=== PATIENT | male | born 1990 | race Hispanic/Latino ===

== ENCOUNTER 2016-06-12 14:46 | Emergency (ER) | payer SELFPAY ==
[~2016-06-12] VITALS: Ht 170.2 cm; Wt 97.5 kg
[2016-06-12] MEDS ORDERED: LIDOCAINE/EPI 1%-1:100,000 (XYLOCAINE) 20ML INJ ONE (15:15)
--- NOTE | 2016-06-12 15:26 | ED EENT ---
History of Present Illness General Chief Complaint: Laceration Stated Complaint: L EYEBROW INJ Nursing Triage Note: ARRIVE VIA AMB TO ROOM 06 WITH LAC TO RIGHT EYEBROW. STATES HE WAS PLAYING RUGBY AND WAS HEAD BUTTED. STATES SOMEONE THERE SUPERGLUED IT AND JUST WANTS IT CLEANED AND LOOKED AT. DENIES LOC Source: patient Exam Limitations: no limitations History of Present Illness Time seen by provider: 15:22 Initial Comments To ER with laceration to the lateral right eyebrow. This began just prior to arrival when he was playing rugby. A teammates head hit him on the right side of the eyebrow. No loss of consciousness. No blurred vision. He does have dizziness and a headache. No nausea. Timing/Duration: yesterday Severity: moderate Associated Symptoms: fever Allergies and Home Medications Allergies Coded Allergies: No Known Drug Allergies (Unverified , 06/12/16) Review of Systems Constitutional: see HPI Eyes: No Symptoms Reported Ears: No Symptoms Reported Nose: no symptoms reported Mouth: no symptoms reported Throat: no symptoms reported Cardiovascular: no symptoms reported Musculoskeletal: no symptoms reported Skin: no symptoms reported Neurological: No Symptoms Reported Past Gyhkzfx-Ewkwxi-Poetuz Hx Patient Social History Alcohol Use: Occasionally Uses Recreational Drug Use: No Smoking Status: Never a Smoker Recent Foreign Travel: No Contact w/Someone Who Travel: No Recent Infectious Disease Expo: No Recent Hopitalizations: No Immunizations Up To Date Tetanus Booster (TDap): Unknown Surgeries HX Surgeries: No Respiratory Hx Respiratory Disorders: No Cardiovascular Hx Cardiac Disorders: No Neurological Hx Neurological Disorders: No Genitourinary Hx Genitourinary Disorders: No Gastrointestinal Hx Gastrointestinal Disorders: No Musculoskeletal Hx Musculoskeletal Disorders: No Endocrine Hx Endocrine Disorders: No HEENT HX ENT Disorders: No Cancer Hx Cancer: No Psychosocial Hx Psychiatric Problems: No Blood Transfusions Hx Blood Disorders: No Physical Exam Vital Signs Vital Sign - Last 12Hours 06/12/16 14:55 Temp 98.0 Pulse 81 B/P (MAP) 82/ Pulse Ox 96 O2 Delivery Room Air General Appearance: WD/WN, no apparent distress Eyes: right eye other (there is a small 0.5 cm but rather deep laceration to the right side of the lateral eyebrow.), bilateral eye PERRL, bilateral eye normal inspection Ears: bilateral ear TM normal, bilateral ear auricle normal, bilateral ear canal normal Nose: normal inspection, active bleeding Mouth/Throat: normal mouth inspection, pharynx normal Neck: non-tender, full range of motion, No tender lateral, No tender midline Gastrointestinal: normal bowel sounds, non tender, soft Neurologic/Psychiatric: alert, normal mood/affect, oriented x 3 Skin: normal color, warm/dry GCS 15, very talkative, alert and pleasant. Laughing and smiling with staff. Laceration Repair : Wound Location: Face Wound Length (cm): 0.5 Wound's Depth, Shape: linear Wound Explored: clean Anesthesia: Lidocaine w/ Epi Volume Anesthetic (ccs): 1 Suture: Prolene Suture Size: 5-0 Number of Sutures: 1 Layer Closure?: 1 Number Deep Layer Sutures: 0 Progress Area anesthetized with 1 mL of 1 percent lidocaine with epinephrine. Wound then scrubbed with chlorhexidine/saline solution then closed with 1 horizontal mattress suture size 5-0 Prolene. Progress/Results/Core Measures Results/Orders My Orders Orders - JUAN PABLO SAAVEDRA APRN Ct Head Wo (06/12/16 15:07) Lidocaine/Epi 1% 1:100,000 (Xylocaine /E (06/12/16 15:15) Vital Signs/I&O Vital Sign - Last 12Hours 06/12/16 14:55 Temp 98.0 Pulse 81 B/P (MAP) 82/ Pulse Ox 96 O2 Delivery Room Air Diagnostic Imaging Diagonstic Imaging: CT Comments NAME: [facility] REC#: [id number] PT STATUS: REG ER : 1990 PHYSICIAN: JUAN PABLO SAAVEDRA APRN ADMIT DATE: 06/12/16/ER Signed Date of Exam:06/12/16 CT HEAD WO PROCEDURE: CT head without contrast. TECHNIQUE: Multiple contiguous axial images were obtained through the brain without the use of intravenous contrast. INDICATION: Injury. Head pain. FINDINGS: The ventricles are normal in size, shape and position. There is no acute parenchymal, edema or mass. There is some increased density in the posterior falx, but the anterior falx is not involved. There is no other evidence of extra-axial hemorrhage. There is no skull fracture. IMPRESSION: There is slight increased density to the posterior falx which may be calcification but I cannot exclude a thin subdural hemorrhage at this site. No other abnormality is seen. Dictated by: Dictated on workstation # [id number] Dict: 06/12/16 1527 Trans: 06/12/16 1532 [id number] Interpreted by: SAMMI ALEXANDER MD Electronically signed by: SAMMI ALEXANDER MD 06/12/16 1532 Departure Impression Impression: Primary Impression: Concussion Additional Impression: Eyebrow laceration Disposition: 01 HOME, SELF-CARE Condition: Stable Departure-Patient Inst. Decision time for Depature: 15:25 Referrals: [facility] (PCP) Primary Care Physician Patient Instructions: Concussion in Adults, Laceration Repair With Stitches (DC ) Add. Discharge Instructions: 1. Given your headache, dizziness and recent head injury we would treat this as a concussion. With that in mind, no roughhousing or sports until you've been symptom free (no dizziness, no headache, no nausea or vision changes) for 7 days 2. Return to ER in 5 days to have the stitches removed at no cost. Return promptly to ER for any worsening headache, nausea, vomiting or other concerns 3. All discharge instructions reviewed with patient and/or family. Voiced understanding. JUAN PABLO SAAVEDRA APRN June 12, 2016 15:25
--- NOTE | 2016-06-12 15:34 | Diagnostic Imaging Report ---
PROCEDURE: CT head without contrast. TECHNIQUE: Multiple contiguous axial images were obtained through the brain without the use of intravenous contrast. INDICATION: Injury. Head pain. FINDINGS: The ventricles are normal in size, shape and position. There is no acute parenchymal, edema or mass. There is some increased density in the posterior falx, but the anterior falx is not involved. There is no other evidence of extra-axial hemorrhage. There is no skull fracture. IMPRESSION: There is slight increased density to the posterior falx which may be calcification but I cannot exclude a thin subdural hemorrhage at this site. No other abnormality is seen. Dictated by: Dictated on workstation # [id number]
[2016-06-12 15:58] VITALS: BP 129/82
== END 2016-06-12 15:58 | disposition home or self-care (01) ==
LOC: ER 14:49
DX: S01.111A Laceration without foreign body of right eyelid and periocular area, initial encounter (principal); S06.0X0A Concussion without loss of consciousness, initial encounter; W50.0XXA Accidental hit or strike by another person, initial encounter; Y93.63 Activity, rugby; Y92.328 Other athletic field as the place of occurrence of the external cause; Y99.8 Other external cause status
CPT/HCPCS: 70450